=== PATIENT | male | born 1930 | race Caucasian/White ===

== ENCOUNTER 2020-03-27 14:22 | Inpatient (IN) | payer OTHER, MEDICARE ==
[~2020-03-27] VITALS: Ht 167.6 cm; Wt 82.3 kg
[2020-03-27] VITALS (16 sets, daily range): BP systolic 78–136; BP diastolic 52–111
[2020-03-27] MEDS ORDERED: cefTRIAXone 1GM/50ML D5W 50 ML IV ONE ×2 (14:32→14:45)
[2020-03-27] MEDS ORDERED: AZITHROMYCIN 500MG/ 250ML 250 ML IV ONE ×2 (14:32→14:45)
[2020-03-27] MEDS ORDERED: SODIUM CHLORIDE 0.9% 500 ML IV ONE (14:45)
[2020-03-27] MEDS ORDERED: dilTIAZem 25 MG/5 ML VIAL IV ONE (14:45)
[2020-03-27 14:46] LABS: Basophils # (auto) 0 10 ^3/uL (0-0.2); Basophils % (auto) 0.1 % (0.0-2.0); Eosinophils # (auto) 0 10 ^3/uL (0-0.8); Eosinophils % (auto) 0.1 % (0.0-7.0); Hemoglobin 14.8 g/dL (13.5-17.5); Lymphocytes % (auto) 6.3 % (10.0-50.0); Mean Corpuscular Hemoglobin 31.4 pg (28.0-32.0); Mean Corpuscular Hgb Conc. 32.1 g/dL (32.0-36.0); Mean Corpuscular Volume 97.7 fL (80.0-100.0); Monocytes # (auto) 0.8 10 ^3/uL (0-1.3); Monocytes % (auto) 5.1 % (0.0-12.0); Neutrophils # (auto) 13.4 10 ^3/uL (1.6-8.6); Neutrophils % (auto) 88.4 % (37.0-80.0); Platelet Count (auto) 169 10^3/uL (140-450); Red Blood Cells 4.71 10^6/uL (4.5-5.90); Red Cell Distribution Width 13.4 % (11.8-14.3); White Blood Cell 15.2 10^3/uL (4.4-10.8)
[2020-03-27 15:01] LABS: INR 1.18 (0.9-1.15); Partial Thromboplastin Time 27.1 sec (23.64-32.05)
[2020-03-27 15:02] LABS: Albumin 2.9 g/dL (3.4-5.0); Magnesium 3.1 mg/dL (1.6-2.6); Potassium 3.9 mmol/L (3.5-5.1)
[2020-03-27 15:07] LABS: Bilirubin, Total 0.5 mg/dL (0.2-1.0); Total Protein 7.8 g/dL (6.4-8.2)
[2020-03-27] MEDS ORDERED: PANT40TA2 PO (15:13)
[2020-03-27] MEDS ORDERED: FINA5TAB4 PO (15:13)
[2020-03-27] MEDS ORDERED: AMIO200T33 PO (15:13)
[2020-03-27] MEDS ORDERED: TAM04C PO (15:13)
[2020-03-27] MEDS ORDERED: LEVO88TA4 PO (15:13)
[2020-03-27 15:20] LABS: Lactic Acid w/Reflex 2.6 mmol/L (0.4-2.0)
[2020-03-27 15:41] LABS: Urine Bacteria FEW /hpf (None Seen); Urine Blood 1+ /uL (Negative); Urine Hyaline Cast FEW /lpf (0 - 2); Urine Mucus FEW (None Seen); Urine Specific Gravity 1.027 (1.001-1.035); Urine WBC 19 /hpf (0 - 3)
[2020-03-27] MEDS ORDERED: HEPARIN DRIP/D5W 100UNITS/ML 250 ML IV SCH ×2 (16:24→17:00)
[2020-03-27] MEDS ORDERED: SODIUM CHLORIDE 0.9% 1,000 ML IV ONE (16:30)
[2020-03-27] MEDS ORDERED: NOREPINEPHRINE 8 MG/250ML KIT 250 ML IV SCH (16:30)
[2020-03-27] MEDS ORDERED: HEPARIN SODIUM (PORCINE) 5000 UNITS/ML 1ML VIAL IV ONE (16:30)
[2020-03-27] MEDS ORDERED: NITROGLYCERIN 0.4 MG SL TAB SL PRN (16:30)
[2020-03-27] MEDS ORDERED: MORPHINE SULF INJ 2 MG/ML SYRINGE 1ML IV PRN (16:30)
[2020-03-27] MEDS ORDERED: AMIODARONE 450mg/250ml AE 250 ML IV SCH ×2 (16:43→22:43)
[2020-03-27] MEDS ORDERED: AMIODARONE HCL 150 MG in D5W 5% 100 ML IV ONE (16:45)
[2020-03-27] MEDS: D5W 5% 1,000 ML IV SCH (17:00)
--- NOTE | 2020-03-27 18:35 | NUR ---
Admit to ICU from [facility] admitted to ICU via jeronimo on monitor technician. Patient transferred to bed, connected to BEDSIDE MONITOR.Patient weighed by bed scale, oriented to YESENIA MARQUIS RN primary RN AND unit.
--- NOTE | 2020-03-27 19:00 | NUR ---
Opening Shift Note Assumed care of patient, awake, non-verbal. No S/S of distress/SOB or pain. Patient currently running Amiodarone 1mg, Heparin 900 units and D5W at 100mL/hr. Patient on 15L non-rebreather saturating at 100%. RN will continue to monitor for changes Q1hr and PRN.
--- NOTE | 2020-03-27 19:30 | NUR ---
REPORT RECEIVED, ASSUMED CARE.
--- NOTE | 2020-03-27 20:30 | NUR ---
Respiratory note: ASSESSED PT, NO RESP DISTRESS NOTED. HR 94, RR 16, SPO2 99% ON 2L N/C BS ARE CLEAR AND DIMINISHED. PATIENT IS NOT VERBAL, UNABLE TO USE INHALER.
--- NOTE | 2020-03-27 21:37 | NUR ---
FAMILY CALLED SPOKE WITH SON ANNIE AND DAUGHTER N LAW LESVIA JAMES. SON CLAIMS TO BE POA, PROVIDED FAX NUMBER FOR ICU UNIT TO FAX THAT INFORMATION TO US. RECONFIRMED WITH THEM THAT PT IS A CHEM CODE ONLY, NO INTUBATION NO SHOCKING NO FEEDINGS, WILL ALLOW NON INVASIVE BIPAP THERAPY. THEY WILL ALSO FAX OVER PT CURRENT MEDICATION LIST. SON GAVE PERMISSION FOR TO ACCEPT AND GIVE INFORMATION ON [facility]. FAMILY REQUEST FOR SEEING PT THRU VIA INTERNET OR CELLPHONE IF POSSIBLE. NOTIFIED RIPENING ROOM ATTENDANT. IF THERE IS A PROBLEM THEY CAN PROVIDE US WITH THEIR AXLE POLISHER INFORMATION FOR CONFIRMATION. WILL PASS ON IN REPORT.
--- NOTE | 2020-03-27 21:45 | NUR ---
Hospitalist paged: Hospitalist paged d/t patient heart rate dropping into the 50's. Patient currently on Amiodarone drip 1mg.
--- NOTE | 2020-03-27 21:59 | NUR ---
Hospitalist returned page: Hospitalist updated on patient condition and situation, along with vital signs, patient's heart rate dropped to 46. Per hospitalist, hold amiodarone and continue to monitor patient. RN will continue to monitor and assess patient.
[2020-03-27] MEDS ORDERED: ALBUTEROL SULF HFA 90MCG INH 200DOSE IN SCH (22:00)
[2020-03-28] VITALS (21 sets, daily range): BP systolic 76–127; BP diastolic 23–91
[2020-03-28 00:12] LABS: INR 1.31 (0.9-1.15)
[2020-03-28 00:24] LABS: Partial Thromboplastin Time 110.8 sec (23.64-32.05)
--- NOTE | 2020-03-28 00:30 | NUR ---
Critical lab: RN received call from lab regarding patient critical lab of PTT at 110.8. RN followed protocol and held heparin drip for one hour. Will restart at 0130.
--- NOTE | 2020-03-28 01:30 | NUR ---
Heparin restarted: Per protocol, heparin restarted at 600.
--- NOTE | 2020-03-28 02:29 | NUR ---
Bed bath: Patient given a bed bath and full linen change. Patient was also noted to have a small BM. RN provided logan care and linen change. Patient tolerated intervention well with no s/s of discomfort or distress.
[2020-03-28] MEDS: D5W 5% 1,000 ML IV SCH (02:52)
[2020-03-28 06:27] LABS: Basophils # (auto) 0.1 10 ^3/uL (0-0.2); Basophils % (auto) 0.6 % (0.0-2.0); Eosinophils # (auto) 0.1 10 ^3/uL (0-0.8); Eosinophils % (auto) 1.2 % (0.0-7.0); Hemoglobin 11.2 g/dL (13.5-17.5); Lymphocytes # (auto) 1.1 10 ^3/uL (0.4-5.4); Lymphocytes % (auto) 8.9 % (10.0-50.0); Mean Corpuscular Hemoglobin 32.1 pg (28.0-32.0); Mean Corpuscular Volume 97.4 fL (80.0-100.0); Monocytes # (auto) 0.6 10 ^3/uL (0-1.3); Monocytes % (auto) 5.5 % (0.0-12.0); Neutrophils # (auto) 9.8 10 ^3/uL (1.6-8.6); Neutrophils % (auto) 83.8 % (37.0-80.0); Nucleated Red Blood Cells % 0.2 %; Platelet Count (auto) 111 10^3/uL (140-450); Red Blood Cells 3.49 10^6/uL (4.5-5.90); White Blood Cell 11.8 10^3/uL (4.4-10.8)
[2020-03-28 06:49] LABS: INR 1.26 (0.9-1.15)
[2020-03-28 06:53] LABS: Potassium 3.2 mmol/L (3.5-5.1)
[2020-03-28 07:01] LABS: Albumin 2.3 g/dL (3.4-5.0); BUN/Creatinine Ratio 35.2; Bilirubin, Total 0.6 mg/dL (0.2-1.0); Calcium 8.6 mg/dL (8.5-10.1)
[2020-03-28 07:12] LABS: Partial Thromboplastin Time 72.4 sec (23.64-32.05)
[2020-03-28] MEDS ORDERED: POTASSIUM CHL 20 Meq TABLET PO ONE (08:00)
--- NOTE | 2020-03-28 08:55 | NUR ---
SPOKE WITH CEDRICK DOMINGUEZ MICA PATCHER, AWARE OF POTASSIUM LEVEL AND ORDERED PO POTASSIUM BUT PATIENT IS PENDING SWALLOW EVAL AND HIGH RISK FOR ASPIRATION. CEDRICK DOMINGUEZ MICA PATCHER STATED SHE WILL ORDER POTASSIUM IV RIDER.
[2020-03-28] MEDS: POTASSIUM CHL 20MEQ/100ML 100 ML IV SCH ×3 (09:00→13:00)
[2020-03-28] MEDS ORDERED: CHOLECALCIFEROL (VITD3) 1,000IU=25mCg TAB PO SCH (10:00)
[2020-03-28] MEDS: ZINC SULFATE 220mg CAP or TAB PO SCH (10:00)
[2020-03-28] MEDS: ERTAPENEM SOD INJ 0.5 GM in SODIUM CHL 0.9% 50 ML IV SCH (10:00)
[2020-03-28] MEDS ORDERED: ASCORBIC ACID 1,000 MG TAB PO SCH (10:00)
--- NOTE | 2020-03-28 10:21 | NUR ---
SPOKE WITH LESVIA MONTGOMERY IN LAW, SET UP PASSWORD "AIRTANKER" ALL QUESTIONS/CONCERNS ADDRESSED. RN PERFORMED SWALLOW EVALULATION WITH APPLE SAUCE AND ABLE TO SWALLOW WITHOUT ISSUE WITH HOB RAISED. STRICT ASPIRATION PRECAUTIONS IN PLACE.
[2020-03-28] MEDS: SOD CHL 0.45% WITH 20MEQ KCL 1,000 ML IV SCH (12:29)
[2020-03-28] MEDS ORDERED: ALBUMIN 25% 100 ML IV ONE (12:30)
--- NOTE | 2020-03-28 12:32 | NUR ---
DR MCGINNIS AT BEDSIDE
[2020-03-28] MEDS ORDERED: PANTOPRAZOLE 40 MG/10 ML VIAL INJ IV ONE (12:45)
--- NOTE | 2020-03-28 12:58 | NUR ---
DR MCGINNIS GAVE DOWNGRADE ORDER FOR [facility] AND HEPARIN GTT STOPPED AT THIS TIME
[2020-03-28 13:06] LABS: Protein, Urine 98.5 mg/dL (0.0-11.9)
[2020-03-28 13:08] LABS: INR 1.21 (0.9-1.15); Partial Thromboplastin Time 46.1 sec (23.64-32.05)
--- NOTE | 2020-03-28 13:18 | NUR ---
WOUND CARE NOTE: Wound care in to see patient per wound care request regarding multiple pressure injuries, skin integrity issue that are noted present on admission. Patient is 89 years old male with admitting diagnosis of Sepsis. Patient is resting in ICU bed in Rm. 111. Patient is awake, non-verbal. Patient appears to be in pain using Ann Rogers Faces Pain Scale. Patient need max assist in turning and repositioning. His Brock score is 13. Skin/wound assessment done with the assistance of patient's nurse, MATTHEW Monique. Patient noted with multiple pressure injuries: Open DTI (Deep Tissue Injury ) to L sacrum (5.5x6cm), open DTI to Rt heel (5x4cm). Wounds are dark red, purple with bright red periwound, minimal serosanguineous drainage, no odor noted. Patient's L heel noted with 5x5.5cm open Stage 3 pressure injury with no measurable depth. Wound bed is red, pink/red periwound,minimal serosanguineous drainage, no odor noted. Cleansed bilateral heel wounds with wound cleanser, applied Thera honey gauze and covered with Opti foam gentle dressing. Cleansed patient's sacrum with mild soap and water,patted dry, applied Z Guard cream and covered with Opti foam sacral dressing. Unstageable pressure injury noted to patient's L hip (0.5x0.5cm) and Lt lateral ankle (0.5x0.7cm). Unstageable pressure injuries are covered with black stable eschar, logan wound is pink, clean and dry, left open to air. Patient's rt hip has multi small scabbed abrasion,no drainage/odor noted, left open to air. Patient's distal Rt lateral foot noted with intact skin with non-blanchable redness consistent with Stage 1 pressure injury. Applied Rhea foam boots to patient's BLE. Photograph of mentioned wounds are taken for reference. Patient tolerated well, MATTHEW Monique at bedside. RECOMMENDATION: Nursing to continue with BID/PRN cleaning and application of Z Guard cream to sacral buttocks; EOD/PRN dressing change to bilateral heel wounds per MD order, Dietary consult , frequent turning and repositioning schedule as condition permits, redistribute pressure points with pillows, air mattress (ordered),Xiao foam boots to BLE, continue monitoring by wound care while patient is hospitalized. Addendum: 03/28/20 at 1736 by Georgia Pimentel RN Amended: Links added.
--- NOTE | 2020-03-28 13:42 | NUR ---
Nutrition Assessment Notes Please refer to link for full assessment notes. Est Energy needs: 6433-1653 kcals (20-23 kcal/kgBW) Est Protein needs: 76-92 gms/day (1.0-1.2 gm/kgBW) d/t pressure injury Will continue to monitor and reassess prn. Addendum: 03/28/20 at [address] Amended: Links added.
--- NOTE | 2020-03-28 13:53 | NUR ---
GAVE REPORT TO GATITO CASTRO IN [facility]
--- NOTE | 2020-03-28 14:08 | NUR ---
TRANSFERRED TO [facility] WITH ALL BELONGINGS IN STABLE CONDITION ON 2LPM O2 VIA NC. LAKHANI DTR IN LAW AWARE OF TRANSFER.
--- NOTE | 2020-03-28 14:10 | NUR ---
ANNIE JAMES received to [facility] via hospital bed on quality assurance monitor body, and portable 02. Patient connected to unit monitoring and oxygen, and weighed by [facility]. Patient awake and oriented to self only, re-orientation done. No S/S of SOB/distress or pain. Patient saturation 99% at 2 LPM oxygen via nasal cannula. See interventions for complete assessment. Bed locked on low position, side rails up x2, bed alarms on at all times, call conrad within reach, instructed to call for needed assistance. Patient oriented to Valentina yanes RN, unit, room, bed, and unit policies regarding patient care and visiting hours. Will continue to monitor.
--- NOTE | 2020-03-28 14:29 | NUR ---
AIR MATTRESS: Air mattress ordered at [facility],Reference # [id number]; ETA 03/28/20 @2027, Call [facility] if need to follow up at [phone] Addendum: 03/28/20 at 1430 by Georgia Pimentel RN Amended: Links added.
--- NOTE | 2020-03-28 14:30 | NUR ---
Kidney ultrasound being done at bedside.
--- NOTE | 2020-03-28 14:36 | NUR ---
SWALLOW EVALUATED. PATIENT HAS NATURAL TEETH, UPPER AND LOWER. PATIENT HAD SOME DIFFICULTY FOLLOWING DIRECTIONS BUT ABLE TO TOLERATE PUREE DIET TEXTURE WITH THIN LIQUIDS WITH NO OVERT SIGNS OR SYMPTOMS OF ASPIRATION. NURSING NOTIFIED.
--- NOTE | 2020-03-28 15:12 | NUR ---
Echocardiogram being done at bedside.
--- NOTE | 2020-03-28 17:01 | NUR ---
Pt is currently intubated in ICU. Pt was residing at [facility] prior to hospitalization. Pt's son ,Tito, is his POA and will be making decisions regarding discharge planning when medically stable. Will follow up and provide intervention as appropriate. Addendum: 03/28/20 at 1702 by CHASE BROUSSARD Amended: Links added.
--- NOTE | 2020-03-28 17:45 | NUR ---
Received call from patient's son Tito and daughter in law Babs who is able to provide password. Updated on patient's status and POC, verbalized understanding. All questions and concerns addressed.
--- NOTE | 2020-03-28 18:23 | NUR ---
Received call from Jenny carver Cartwright. Updated on patient's status.
--- NOTE | 2020-03-28 20:10 | NUR ---
OPENING SHIFT NOTE RECEIVED PT AWAKE RESTING IN BED. ALERT AND ORIENTED TO SELF ONLY. REORIENTED PT, BUT PT ANSWERS QUESTIONS INAPPROPRIATELY, IS ABLE TO FOLLOW SOME COMMANDS. COMPLETE PHYSICAL ASSESSMENT DONE: SEE INTERVENTIONS. FALL PRECAUTIONS IN PLACE. PT IS ON A SPECIALTY AIR MATTRESS. UPDATED ON POC , WILL CONTINUE TO MONITOR CLOSELY.
[2020-03-29] VITALS: BP 131/57
[2020-03-29] MEDS: SOD CHL 0.45% WITH 20MEQ KCL 1,000 ML IV SCH (00:30)
--- NOTE | 2020-03-29 00:30 | NUR ---
AM CARE COMPLETE BED BATH PROVIDED AND OLVERA CARE DONE. PT HAD EPISODE OF BOWEL INCONTINENCE, SMALL SOFT BROWN BOWEL MOVEMENT. PERINEAL AREA CLEANSED.SKIN REASSESSED FOR ANY CHANGES: OPEN DTI TO SACRUM/COCCYX AREA CLEANSED AND PATTED DRY, Z-GUARD BARRIER CREAM APPLIED AND NEW OPTIFOAM PLACED. OPEN PRESSURE INJURY TO BILATERAL HEELS, COVERED WITH OPTIFOAM AND PT HAS DUNG BOOTS IN PLACE. COMPLETE BED LINEN CHANGE DONE, NEW GOWN PLACED ON PT AND REPOSITIONED IN BED FOR COMFORT. CONTINUE TO MONITOR. BED ALARM ON, SIDE RAILS UP X2.
[2020-03-29 04:00] VITALS: BP 138/58
[2020-03-29 04:16] LABS: Basophils # (auto) 0 10 ^3/uL (0-0.2); Basophils % (auto) 0.5 % (0.0-2.0); Eosinophils # (auto) 0.2 10 ^3/uL (0-0.8); Eosinophils % (auto) 1.9 % (0.0-7.0); Hematocrit 34.2 % (41.0-53.0); Lymphocytes # (auto) 0.9 10 ^3/uL (0.4-5.4); Lymphocytes % (auto) 10.8 % (10.0-50.0); Mean Corpuscular Hgb Conc. 32.3 g/dL (32.0-36.0); Mean Corpuscular Volume 98.8 fL (80.0-100.0); Monocytes # (auto) 0.5 10 ^3/uL (0-1.3); Monocytes % (auto) 6.1 % (0.0-12.0); Neutrophils % (auto) 80.7 % (37.0-80.0); Nucleated Red Blood Cells % 0.1 %; Platelet Count (auto) 94 10^3/uL (140-450); Red Blood Cells 3.46 10^6/uL (4.5-5.90); White Blood Cell 8.7 10^3/uL (4.4-10.8)
[2020-03-29 04:38] LABS: Albumin 2.7 g/dL (3.4-5.0); Calcium 8.9 mg/dL (8.5-10.1)
[2020-03-29 04:42] LABS: BUN/Creatinine Ratio 35.1; Bilirubin, Total 0.5 mg/dL (0.2-1.0); Phosphorus 2.4 mg/dL (2.5-4.90); Total Protein 6.3 g/dL (6.4-8.2)
[2020-03-29 07:50] VITALS: BP 135/95
--- NOTE | 2020-03-29 08:00 | NUR ---
Opening Shift Note Assumed care of patient, awake and oriented to self, re-orientation done. No S/S of distress/SOB or pain. Patient saturation 100% at 2 LPM oxygen via nasal cannula. See interventions for complete assessment. Bed locked on low position, side rails up x2, bed alarms on at all times, call conrad within reach, instructed on POC and to call for assist PRN, will continue to monitor for changes Q1hr and PRN.
--- NOTE | 2020-03-29 08:35 | NUR ---
Called [facility], spoke to Jaswinder, informed of patient's pending VQ scan.
[2020-03-29] MEDS ORDERED: D5W/SOD CHL 0.45% 1,000 ML IV SCH (09:00)
[2020-03-29] MEDS ORDERED: PANTOPRAZOLE 40 MG/10 ML VIAL INJ IV SCH (10:00)
[2020-03-29] MEDS: ENOXAPARIN SOD 80 MG/0.8ML SYRINGE SC SCH (10:07)
[2020-03-29] MEDS: ZINC SULFATE 220mg CAP or TAB PO SCH (10:08)
[2020-03-29] MEDS: ERTAPENEM SOD INJ 0.5 GM in SODIUM CHL 0.9% 50 ML IV SCH (10:57)
--- NOTE | 2020-03-29 11:00 | NUR ---
Kidney ultrasound being done at bedside. Addendum: 03/29/20 at 1249 by Valentina East RN wrong patient
--- NOTE | 2020-03-29 11:30 | NUR ---
Dr Araujo at bedside, updated on patient's status. Patient seen and examined. Received verbal order to transfer patient to Telemetry floor. Read back and verified. Will carry out. Addendum: 03/29/20 at 1255 by Valentina East RN wrong patient
[2020-03-29 11:50] VITALS: BP 111/55
--- NOTE | 2020-03-29 12:03 | NUR ---
Urine sample sent to lab. Addendum: 03/29/20 at 1255 by Valentina East RN wrong patient
--- NOTE | 2020-03-29 12:55 | NUR ---
Dr Hyman at bedside, updated on patient's status. Patient seen and examined. Dr Hyman states "You can move patient to Tele if you need [facility] bed." Read back and verified."
[2020-03-29] MEDS ORDERED: ERTAPENEM SOD INJ 1 GM in SODIUM CHL 0.9% 50 ML IV ONE (13:00)
[2020-03-29] MEDS ORDERED: LEVOTHYROXINE SODIUM 88 MCG TAB PO ONE (13:00)
--- NOTE | 2020-03-29 13:00 | NUR ---
Spoke to Jaswinder from [facility] regarding patient's VQ scan, Jaswinder states "Will do it later this afternoon." Dr Hyman informed.
[2020-03-29] MEDS: D5W/SOD CHL 0.45% 1,000 ML IV SCH (13:46)
--- NOTE | 2020-03-29 15:00 | NUR ---
Received call from patient's son Giovanny who's able to provide password. Updated on patient's status and POC, verbalized understanding. All questions and concerns addressed.
--- NOTE | 2020-03-29 15:04 | NUR ---
Patient out of bed standing at bedside with PT, fall precaution in place, patient max assist.
[2020-03-29 15:30] VITALS: BP 109/44
--- NOTE | 2020-03-29 15:45 | NUR ---
Patient out of room to VQ scan.
--- NOTE | 2020-03-29 16:18 | NUR ---
Patient back to room from [facility].
--- NOTE | 2020-03-29 17:50 | NUR ---
[facility] pt transferred to floor ANNIE JAMES transferred to Tele floor via hospital bed on auto damage adjuster and portable 02. All patient medications and personal belongings transfered with patient to receiving floor. Patient care transferred to Sonia CASTOR.
[2020-03-29] MEDS: TAMSULOSIN HYDROCHLORIDE 0.4 MG CAP PO SCH (18:00)
--- NOTE | 2020-03-29 18:00 | NUR ---
[facility] pt transferred to floor JACOBANNIE received to Tele Floor room 204 via bed on superintendent warehouse. All personal belongings at bedside with patient. Patient shows no signs of distress, sob, or pain at this time.
--- NOTE | 2020-03-29 19:30 | NUR ---
Opening Shift Note Assumed care of patient, awake and oriented to self only. Mumbling words that are not understandable. No S/S of distress/SOB or pain. Safety precaution in place, bed alarm on, instructed to call if he needs something, call light within reach, will continue to monitor for changes Q1hr and PRN.
--- NOTE | 2020-03-29 19:32 | NUR ---
ENDORSED CARE TO NIGHT MATTHEW SCHAEFFER. PATIENT RESTING IN BED, NO DISTRESS, SOB, OR PAIN NOTED AT THIS TIME.
--- NOTE | 2020-03-29 20:05 | NUR ---
Noted skin tear on left buttocks after having bowel movement. 2243 - Pictures taken, cleansed wound with wound cleanser and covered with optifoam. Turned patient every 2 hours, will continue to monitor
[2020-03-29 21:37] VITALS: BP 100/62
--- NOTE | 2020-03-29 23:05 | NUR ---
Spoke to hospitalist Jarrod and updated him on VQ Scan result. No new order at this time
[2020-03-30] MEDS: D5W/SOD CHL 0.45% 1,000 ML IV SCH (02:20)
[2020-03-30 05:00] VITALS: BP 97/76
[2020-03-30 06:05] LABS: Basophils # (auto) 0 10 ^3/uL (0-0.2); Basophils % (auto) 0.3 % (0.0-2.0); Eosinophils # (auto) 0.1 10 ^3/uL (0-0.8); Eosinophils % (auto) 1.7 % (0.0-7.0); Hematocrit 31.4 % (41.0-53.0); Hemoglobin 10.3 g/dL (13.5-17.5); Lymphocytes # (auto) 0.8 10 ^3/uL (0.4-5.4); Lymphocytes % (auto) 9.1 % (10.0-50.0); Mean Corpuscular Hemoglobin 31.9 pg (28.0-32.0); Mean Corpuscular Hgb Conc. 32.9 g/dL (32.0-36.0); Mean Corpuscular Volume 96.7 fL (80.0-100.0); Monocytes # (auto) 0.5 10 ^3/uL (0-1.3); Monocytes % (auto) 5.7 % (0.0-12.0); Neutrophils % (auto) 83.2 % (37.0-80.0); Platelet Count (auto) 93 10^3/uL (140-450); Red Blood Cells 3.24 10^6/uL (4.5-5.90); Red Cell Distribution Width 12.7 % (11.8-14.3); White Blood Cell 8.5 10^3/uL (4.4-10.8)
[2020-03-30 06:25] LABS: Albumin 2.5 g/dL (3.4-5.0); Calcium 8.7 mg/dL (8.5-10.1); Potassium 3.8 mmol/L (3.5-5.1)
[2020-03-30 06:46] LABS: BUN/Creatinine Ratio 34.1; Bilirubin, Total 0.5 mg/dL (0.2-1.0); Total Protein 5.8 g/dL (6.4-8.2)
--- NOTE | 2020-03-30 06:55 | NUR ---
Held Synthroid at this time. Patient doesn't want to swallow pudding and determined high risk of aspiration. Will endorse to sherine CASTRO
[2020-03-30] MEDS ORDERED: LEVOTHYROXINE SODIUM 88 MCG TAB PO SCH (07:00)
--- NOTE | 2020-03-30 07:30 | NUR ---
Opening Shift Note Assumed care of patient, awake and alert. No S/S of distress/SOB or pain. Instructed on POC and to call for assist PRN, will continue to monitor for changes Q1hr and PRN. Fall precautions in place per safety protocol.
[2020-03-30 09:00] VITALS: BP 143/69
--- NOTE | 2020-03-30 09:30 | NUR ---
Hospitalist at bedside MD Kyle at bedside, aware of patient status. Spoke to MD about patient not swallowing medications and keeping pureed food in mouth and not swallowing. Recommended Swallow eval, per MD, Swallow eval was done already. Per MD Kyle, he will put in orders for patient to be transferred to acute care facility [place]. Will cont to monitor patient.
--- NOTE | 2020-03-30 09:40 | NUR ---
Dressing change Dressing changes done, Photos taken, Patient tolerated well. Will cont to monitor patient.
[2020-03-30] MEDS ORDERED: levoFLOXacin 500MG 100 ML IV SCH (10:00)
[2020-03-30] MEDS: ENOXAPARIN SOD 80 MG/0.8ML SYRINGE SC SCH (10:00)
[2020-03-30] MEDS ORDERED: FINASTERIDE 5 MG TAB PO SCH (10:00)
[2020-03-30] MEDS ORDERED: PANTOPRAZOLE 40 MG TAB PO SCH (10:00)
[2020-03-30] MEDS ORDERED: ERTAPENEM SOD INJ 1 GM in SODIUM CHL 0.9% 50 ML IV SCH ×4 (10:00)
[2020-03-30] MEDS: AMPICILLIN INJ 500 MG in SODIUM CHL 0.9% 50 ML IV SCH ×3 (12:30→23:55)
[2020-03-30] MEDS ORDERED: D5W/SOD CHL 0.45% 1,000 ML IV SCH (12:30)
--- NOTE | 2020-03-30 12:40 | NUR ---
1230 03/30/20 I faxed transfer order, transfer summary and Notice Regarding Post Stabilization to [facility]-document scanned into [employer]. I faxed today's labs, vitals and medication list to [facility].
[2020-03-30 13:00] VITALS: BP 108/70
--- NOTE | 2020-03-30 16:44 | NUR ---
5158 03/30/20 Contacted [facility] and spoke with Odd Bundle Worker Amanda to request an update on the status of the transfer. Per Amanda, they did receive the transfer order and she is working on a bed assignment at [facility]. She will call nurse's station when a bed becomes available. I also spoke with patient's daughter Gloria Lima [phone] and provided her with an update on the status of the transfer. I called Nurse Mascorro and updated her as well.
[2020-03-30 17:00] VITALS: BP 135/85
[2020-03-30] MEDS: TAMSULOSIN HYDROCHLORIDE 0.4 MG CAP PO SCH (17:50)
--- NOTE | 2020-03-30 19:30 | NUR ---
Opening Shift Note Assumed care of patient, awake and oriented to self only. Has a garbled speech that are not understandable. No S/S of distress/SOB or pain. Safety precaution in place, bed alarm on, instructed to call if he needs something, call light within reach, will continue to monitor for changes Q1hr and PRN.
--- NOTE | 2020-03-30 21:40 | NUR ---
[facility] called and informed this primary RN that patient will be going to [facility] in Rm. [place]
[2020-03-30 22:00] VITALS: BP 134/62
--- NOTE | 2020-03-30 22:00 | NUR ---
Pictures taken on bilateral heels wound and sacral wound prior to DC. Cleansed wound with cleanser and applied new dressing. Turned patient to his side, patient tolerated well
--- NOTE | 2020-03-30 22:50 | NUR ---
Gave report to MATTHEW Sanchez
--- NOTE | 2020-03-30 23:00 | NUR ---
Spoke to patient's son Tito and informed him of patient's transfer. Gave son's permission to acknowledge transfer through telephone witnessed by another RN Viktoria. Son verbalized understanding
--- NOTE | 2020-03-31 00:25 | NUR ---
Pt being trans to another hosp Order obtained for transfer of ANNIE JAMES to [facility]. Report called/given to Laura. Report given to EMS transport team. Medication reconciliation form completed and copy given to [facility] Staff. Transported via [facility] along with copied chart and imaging films/disk and all personal belongings. No distress noted on time of departure. Family notified of destination and room number, verbalized understanding. NOTE: []
== END 2020-03-31 00:26 | disposition short-term general hospital (02) | DRG 871 ==
LOC: EDBD 14:22 → ER 14:22 → TELE 14:23 → ICU WEST 18:21 → DOU IN ICU 03-28 14:00 → TELE-CENTR 03-29 17:58
PROVIDERS: ADMIT Nurse Practitioner Acute Care; ATTEND Internal Medicine
DX: A41.9 Sepsis, unspecified organism (principal); G92 Toxic encephalopathy; I21.A1 Myocardial infarction type 2; I26.99 Other pulmonary embolism without acute cor pulmonale; J96.01 Acute respiratory failure with hypoxia; N17.0 Acute kidney failure with tubular necrosis; R65.21 Severe sepsis with septic shock; E44.0 Moderate protein-calorie malnutrition; E87.0 Hyperosmolality and hypernatremia; N30.00 Acute cystitis without hematuria; B95.2 Enterococcus as the cause of diseases classified elsewhere; D64.9 Anemia, unspecified; E03.9 Hypothyroidism, unspecified; E83.42 Hypomagnesemia; E86.0 Dehydration; E86.1 Hypovolemia; E87.6 Hypokalemia; F02.80 Dementia in other diseases classified elsewhere, unspecified severity, without behavioral disturbance, psychotic disturbance, mood disturbance, and anxiety; G30.9 Alzheimer's disease, unspecified; I12.9 Hypertensive chronic kidney disease with stage 1 through stage 4 chronic kidney disease, or unspecified chronic kidney disease; I48.91 Unspecified atrial fibrillation; I70.0 Atherosclerosis of aorta; J44.9 Chronic obstructive pulmonary disease, unspecified; M81.0 Age-related osteoporosis without current pathological fracture; N18.9 Chronic kidney disease, unspecified; N40.0 Benign prostatic hyperplasia without lower urinary tract symptoms; Z51.5 Encounter for palliative care; B96.20 Unspecified Escherichia coli [E. coli] as the cause of diseases classified elsewhere; K21.9 Gastro-esophageal reflux disease without esophagitis; Z79.899 Other long term (current) drug therapy; Z68.29 Body mass index [BMI] 29.0-29.9, adult
CPT/HCPCS: 36415; 36600; 71045; 76775; 78582; 80053; 81001; 82306; 82570; 82728; 82805; 83605; 83615; 83735; 83880; 83935; 83970; 84100; 84156; 84300; 84443; 84484; 85025; 85379; 85610; 85730; 87040; 87070; 87081; 87086; 87088; 87186; 87804; 87880; 92610; 93005; 93306; 97163; 99291; C9113; G0378; J0696; J1335; J3480; J7060; P9047